=== PATIENT | male | born 1965 | race African-American/Black ===

== ENCOUNTER 2023-02-16 06:06 | Day surgery (SDC) | payer MEDICAID ==
[~2023-02-16] VITALS: Ht 177.8 cm; Wt 113.4 kg
[2023-02-16] MEDS ORDERED: MIDAZOLAM HCL 5 MG/5 ML VIAL ONE (06:36)
[2023-02-16] MEDS ORDERED: fentaNYL CITRATE/PF 100 MCG/2 ML AMP ONE (06:36)
[2023-02-16] MEDS ORDERED: MEPERIDINE 50 MG/ML VIAL ONE (07:38)
[2023-02-16] MEDS ORDERED: SIMETHICONE 40 MG/0.6 ML ML ONE (08:34)
[2023-02-16 12:02] VITALS: BP_SYST 163
== END 2023-02-16 10:25 | disposition home or self-care (01) ==
LOC: SDS 06:06 → SMU 06:28 → SDS 10:25
PROVIDERS: ATTEND Internal Medicine Gastroenterology
DX: R10.9 Unspecified abdominal pain (principal); K25.3 Acute gastric ulcer without hemorrhage or perforation; K29.50 Unspecified chronic gastritis without bleeding; B96.81 Helicobacter pylori [H. pylori] as the cause of diseases classified elsewhere; K21.9 Gastro-esophageal reflux disease without esophagitis; J45.909 Unspecified asthma, uncomplicated; E11.9 Type 2 diabetes mellitus without complications; E78.5 Hyperlipidemia, unspecified; Z79.899 Other long term (current) drug therapy; Z20.822 Contact with and (suspected) exposure to COVID-19
CPT/HCPCS: 43239; 87426; 87081; 82962; 36415; 88305; 88312; 88313; 99152; G0378; J2250; J2175; J3010

== ENCOUNTER 2023-04-04 12:50 | Emergency (ER) | payer MEDICAID ==
[~2023-04-04] VITALS: Ht 177.8 cm; Wt 104.3 kg
[2023-04-04 12:57] VITALS: BP_SYST 147
[2023-04-04] MEDS ORDERED: MAG HYDROX/AL HYDROX/SIMETH 30 ML, DICYCLOMINE HCL 20 MG, LIDOCAINE VISCOUS 2% 15ML (PO... PO ONE ×3 (14:30)
[2023-04-04 16:18] LABS: BASOPHILS % (AUTO) 0.4 % (0.0-2.0); EOSINOPHILS % (AUTO) 0.8 % (0.0-4.0); HEMATOCRIT 39.9 % (36-54); HEMOGLOBIN 13.9 g/dL (14.0-18.0); LYMPHOCYTES # (AUTO) 0.9 K/uL (1.0-5.5); LYMPHOCYTES % (AUTO) 28.7 % (20.5-51.5); MEAN CORPUSCULAR HEMOGLOBIN 31 pg (27-31); MEAN CORPUSCULAR HGB CONC 35 % (32-36); MEAN CORPUSCULAR VOLUME 89 fL (79.0-98.0); MONOCYTES # (AUTO) 0.4 K/uL (0.0-1.0); MONOCYTES % (AUTO) 13.2 % (1.7-9.3); NEUTROPHILS # (AUTO) 1.8 K/uL (1.8-7.7); NEUTROPHILS % (AUTO) 56.9 % (40.0-70.0); PLATELET COUNT (AUTO) 130 K/uL (130-430); RED BLOOD CELL COUNT(AUTO) 4.48 MIL/uL (4.2-6.2); RED CELL DISTRIBUTION WIDTH 14.1 % (9.0-15.0); WHITE BLOOD COUNT (AUTO) 3.2 K/uL (4.8-10.8)
[2023-04-04 16:33] LABS: ANION GAP 7 (5-15); CALCIUM 8.7 mg/dL (8.4-11.0); CHLORIDE 96 mmol/L (98-107); CREATININE 1.26 mg/dL (0.55-1.30); GFR AFRICAN AMERICAN 76 mL/min (>90); GLUCOSE 295 mg/dL (70-99); UREA NITROGEN, BLOOD 12 mg/dL (8-21)
[2023-04-04 16:40] LABS: ALANINE AMINOTRANSFERASE 67 U/L (12-78); ALBUMIN 2.7 g/dL (3.4-4.8); ASPARTATE AMINOTRANSFERASE 83 U/L (10-37); INR 1.3 (0.80-1.20); PROTHROMBIN TIME 13.3 SECS (9.5-12.5); TOTAL BILIRUBIN 1.4 mg/dL (0.0-1.0)
[2023-04-04] MEDS ORDERED: TRAM50TA2 PO (18:04)
[2023-04-04] MEDS ORDERED: AMOX500C2 PO (18:42)
== END 2023-04-04 18:52 | disposition home or self-care (01) ==
LOC: SED 12:50
DX: K20.90 Esophagitis, unspecified without bleeding (principal); R07.89 Other chest pain; R05.9 Cough, unspecified; Z79.899 Other long term (current) drug therapy
CPT/HCPCS: 99285; 71045; 80053; 82550; 85025; 85610; 85730; 84484; 36415; 93005; J2001